=== PATIENT | female | born 1960 | race Caucasian/White ===

== ENCOUNTER → 2020-03-09 | Outpatient (CLI) | payer BC | LOC: MAMMO 15:31 | PROVIDERS: ATTEND Obstetrics & Gynecology | DX: Z12.31 Encounter for screening mammogram for malignant neoplasm of breast (principal) | CPT/HCPCS: 77067 ==

== ENCOUNTER 2021-09-17 14:14 | Inpatient (IN) | payer OTHER ==
[~2021-09-17] VITALS: Ht 167.6 cm; Wt 65.8 kg
[2021-09-17] MEDS ORDERED: ASPIRIN 81 MG CHEW TAB PO ONE ×2 (15:30)
[2021-09-17] MEDS ORDERED: ALBUTEROL/IPRATROPIUM 3 ML NEB NEB PRN (15:30)
[2021-09-17 15:52] LABS: BASOPHILS # (AUTO) 0.1 (0.0-0.1); BASOPHILS % 0.8 % (0.0-1.0); EOSINOPHILS # (AUTO) 0.6 (0.0-0.4); HEMATOCRIT 37.5 % (34.2-44.1); HEMOGLOBIN 12.2 g/dL (12.0-16.0); LYMPHOCYTES # (AUTO) 1.6 (1.0-3.2); LYMPHOCYTES % 18.4 % (18.0-39.1); MEAN CORPUSCULAR HEMOGLOBIN 29.6 pg (28-32); MEAN CORPUSCULAR HGB CONC 32.5 g/dL (31-35); MONOCYTES # (AUTO) 0.7 (0.2-0.8); MONOCYTES % 7.9 % (4.4-11.3); NEUTROPHILS # (AUTO) 5.8 (2.1-6.9); NEUTROPHILS % 65.6 % (38.7-80.0); PLATELET COUNT 318 x10e3/uL (140-360); RED BLOOD COUNT 4.12 x10e6/uL (3.6-5.1); RED CELL DISTRIBUTION WIDTH 13.2 % (11.7-14.4)
[2021-09-17 16:19] LABS: ANION GAP 17.1 mmol/L (8-16); CREATININE, SERUM 0.76 mg/dL (0.57-1.11); POTASSIUM 4.1 mmol/L (3.5-5.1)
[2021-09-17 16:38] VITALS: BP 135/81
[2021-09-17 17:28] VITALS: BP 135/81
[2021-09-17 17:35] VITALS: BP 135/81
[2021-09-17] MEDS ORDERED: CEFTRIAXONE 1 GM in SODIUM CHLORIDE 0.9% 50ML 50 ML IV SCH (18:00)
[2021-09-17 20:00] VITALS: BP 122/91
[2021-09-17] MEDS: METHYLPREDNISOLONE SOD SUCC 40 MG/ML VIAL 1ML IV SCH (20:57)
[2021-09-17] MEDS: CEFTRIAXONE 1 GM in SODIUM CHLORIDE 0.9% 50ML 50 ML IV SCH (20:57)
[2021-09-17 21:00] VITALS: BP 122/91
[2021-09-17] MEDS ORDERED: GABAPENTIN300 MG PO (22:05)
[2021-09-17] MEDS ORDERED: PROTONIX20 MG PO (22:05)
[2021-09-17] MEDS ORDERED: LEVOTHYROXINE75 MC1 PO (22:05)
[2021-09-17] MEDS ORDERED: MESTINON60 MG PO (22:05)
[2021-09-17] MEDS ORDERED: AMBIEN10 MG PO (22:05)
[2021-09-17] MEDS: ZOLPIDEM TARTRATE 10 MG TAB PO PRN (22:44)
[2021-09-17] MEDS: GABAPENTIN 300 MG CAP PO SCH (22:44)
[2021-09-18] VITALS (8 sets, daily range): BP systolic 114–133; BP diastolic 65–85
[2021-09-18] MEDS: LEVOTHYROXINE SODIUM 75 MCG TAB PO SCH (05:02)
[2021-09-18 05:17] LABS: BASOPHILS % 0.3 % (0.0-1.0); HEMATOCRIT 37.7 % (34.2-44.1); LYMPHOCYTES # (AUTO) 0.6 (1.0-3.2); LYMPHOCYTES % 7.7 % (18.0-39.1); MEAN CORPUSCULAR HEMOGLOBIN 28.8 pg (28-32); MEAN CORPUSCULAR HGB CONC 31.8 g/dL (31-35); MEAN CORPUSCULAR VOLUME 90.6 fL (81-99); MONOCYTES # (AUTO) 0.1 (0.2-0.8); NEUTROPHILS # (AUTO) 6.6 (2.1-6.9); NEUTROPHILS % 90.7 % (38.7-80.0); PLATELET COUNT 343 x10e3/uL (140-360); RED BLOOD COUNT 4.16 x10e6/uL (3.6-5.1); RED CELL DISTRIBUTION WIDTH 13.2 % (11.7-14.4)
[2021-09-18 05:46] LABS: ANION GAP 12.3 mmol/L (8-16); CALCIUM 8.9 mg/dL (8.4-10.2); CREATININE, SERUM 0.75 mg/dL (0.57-1.11); POTASSIUM 4.3 mmol/L (3.5-5.1)
[2021-09-18 06:00] LABS: CREATINE KINASE MB 0.8 ng/mL (0-5.0)
[2021-09-18] MEDS: CEFTRIAXONE 1 GM in SODIUM CHLORIDE 0.9% 50ML 50 ML IV SCH (09:23)
[2021-09-18] MEDS: METHYLPREDNISOLONE SOD SUCC 40 MG/ML VIAL 1ML IV SCH ×2 (09:23→20:30)
[2021-09-18] MEDS: PANTOPRAZOLE SOD 40 MG TABEC PO SCH (09:24)
[2021-09-18] MEDS: PYRIDOSTIGMINE BROMIDE 60 MG TAB PO SCH ×4 (09:24→20:30)
[2021-09-18] MEDS: ALBUTEROL/IPRATROPIUM 3 ML NEB NEB SCH ×2 (13:00→19:08)
[2021-09-18 13:22] LABS: CREATINE KINASE MB 0.6 ng/mL (0-5.0)
[2021-09-18] MEDS ORDERED: IOPAMIDOL 370 MG/ML 200 ML INFUS..BTL INJ ONE (14:35)
[2021-09-18] MEDS ORDERED: SODIUM CHLORIDE 0.9% 50ML 50 ML ONE (14:35)
[2021-09-18] MEDS: ENOXAPARIN SOD INJ 40 MG/0.4 ML SYR SC SCH (18:27)
[2021-09-18] MEDS ORDERED: ACETAMINOPHEN 325 MG TAB PO PRN (20:00)
[2021-09-18] MEDS: GABAPENTIN 300 MG CAP PO SCH (20:30)
[2021-09-18] MEDS: ZOLPIDEM TARTRATE 10 MG TAB PO PRN (21:25)
[2021-09-19] VITALS (9 sets, daily range): BP systolic 95–136; BP diastolic 63–76
[2021-09-19] MEDS: ALBUTEROL/IPRATROPIUM 3 ML NEB NEB SCH ×3 (01:22→13:15)
[2021-09-19] MEDS: LEVOTHYROXINE SODIUM 75 MCG TAB PO SCH (06:55)
[2021-09-19] MEDS: CEFTRIAXONE 1 GM in SODIUM CHLORIDE 0.9% 50ML 50 ML IV SCH (09:00)
[2021-09-19] MEDS: METHYLPREDNISOLONE SOD SUCC 40 MG/ML VIAL 1ML IV SCH (09:00)
[2021-09-19] MEDS: PANTOPRAZOLE SOD 40 MG TABEC PO SCH (09:00)
[2021-09-19] MEDS: PYRIDOSTIGMINE BROMIDE 60 MG TAB PO SCH ×3 (09:00→17:00)
[2021-09-19] MEDS ORDERED: LORATADINE/PSEUDOEPHEDRINE 24 HR SR TAB PO SCH (11:30)
[2021-09-19] MEDS: FLUTICASONE PROPIONATE NASAL SPRAY NS SCH ×2 (17:00→17:06)
[2021-09-19] MEDS: ENOXAPARIN SOD INJ 40 MG/0.4 ML SYR SC SCH ×2 (17:00→17:06)
[2021-09-19] MEDS ORDERED: MONTELUKAST SODIUM 10 MG TAB PO SCH (21:00)
== END 2021-09-19 20:02 | disposition home or self-care (01) | DRG 202 ==
LOC: MED/SURG2 14:55 → OBSVTOIN 09-18 10:27
PROVIDERS: ADMIT Internal Medicine; ATTEND Internal Medicine
DX: J20.9 Acute bronchitis, unspecified (principal); J45.901 Unspecified asthma with (acute) exacerbation; G70.00 Myasthenia gravis without (acute) exacerbation; E03.9 Hypothyroidism, unspecified; K21.9 Gastro-esophageal reflux disease without esophagitis; K44.9 Diaphragmatic hernia without obstruction or gangrene; J06.9 Acute upper respiratory infection, unspecified; R09.02 Hypoxemia; J32.9 Chronic sinusitis, unspecified; G62.9 Polyneuropathy, unspecified; J30.2 Other seasonal allergic rhinitis; M79.7 Fibromyalgia; R07.2 Precordial pain; R06.00 Dyspnea, unspecified; R53.83 Other fatigue; R06.89 Other abnormalities of breathing; E87.6 Hypokalemia; Z82.49 Family history of ischemic heart disease and other diseases of the circulatory system; Z84.1 Family history of disorders of kidney and ureter
CPT/HCPCS: 36415; 70487; 70551; 71260; 72141; 80048; 82550; 82553; 82607; 82746; 84443; 84484; 85025; 93306; 94640; 94799; G0378; J0696; J1650; J2920; Q9967

== ENCOUNTER → 2021-10-24 | Outpatient (CLI) | payer OTHER ==
[~2021-10-24] MED LIST: AMBIEN10 MG PO; GABAPENTIN300 MG PO; LEVOTHYROXINE75 MC1 PO; MESTINON60 MG PO; PROTONIX20 MG PO
== END ==
LOC: MAMMO 15:37
PROVIDERS: ATTEND Obstetrics & Gynecology
DX: Z12.31 Encounter for screening mammogram for malignant neoplasm of breast (principal)
CPT/HCPCS: 77067

== ENCOUNTER → 2022-10-26 | Outpatient (CLI) | payer BC | LOC: MAMMO 09:45 | PROVIDERS: ATTEND Obstetrics & Gynecology | DX: Z12.31 Encounter for screening mammogram for malignant neoplasm of breast (principal) | CPT/HCPCS: 77067 ==

== ENCOUNTER → 2023-08-27 | Outpatient (REF) | payer BC | LOC: MRI 08:33 | PROVIDERS: ATTEND Psychiatry & Neurology Clinical Neurophysiology | DX: G51.0 Bell's palsy (principal); M50.90 Cervical disc disorder, unspecified, unspecified cervical region; M43.22 Fusion of spine, cervical region | CPT/HCPCS: 70551; 72141 ==

== ENCOUNTER → 2024-02-20 | Outpatient (REF) | payer BC ==
[~2024-02-20] MED LIST changes: +ACETAMINOPHEN-1 EAC4 PO; +ACETAMINOPHEN325 M1 PO; +BACTRIM DS TAB1 EACH PO; +CIPRO500 MG PO; +PROGESTERONE200 MG; +ROBAXIN100 MG/1 M PO
== END ==
LOC: MAMMO 09:00
PROVIDERS: ATTEND Obstetrics & Gynecology
DX: Z12.31 Encounter for screening mammogram for malignant neoplasm of breast (principal)
CPT/HCPCS: 77067